=== PATIENT | female | born 1970 | race Caucasian/White ===

== ENCOUNTER 2021-03-15 12:46 | Inpatient (IN) | payer OTHER ==
[~2021-03-15] VITALS: Ht 160 cm; Wt 79.4 kg
[~2021-03-15 12:46] MED LIST: NORCO 5-325 TA1 EACH PO
[2021-03-15 20:25] LABS: HEMOGLOBIN 14.2 gm/dl (12.3-15.3); RED BLOOD COUNT 4.65 M/UL (4.00-5.10); WHITE BLOOD COUNT 3.7 K/UL (4.5-11.0)
[2021-03-15 20:59] LABS: BUN/CREATININE RATIO 13 (0-10)
[2021-03-16 04:23] LABS: HEMOGLOBIN 13.6 gm/dl (12.3-15.3); RED BLOOD COUNT 4.49 M/UL (4.00-5.10)
[2021-03-16 04:29] LABS: WHITE BLOOD COUNT 1.7 K/UL (4.5-11.0)
[2021-03-16 05:02] LABS: BUN/CREATININE RATIO 11 (0-10)
[2021-03-16] MEDS ORDERED: DULOXETINE HCL30 MG PO (11:48)
[2021-03-16] MEDS ORDERED: DULOXETINE HCL60 MG PO (11:49)
[2021-03-16] MEDS ORDERED: CLONIDINE HCL0.3 MG PO (11:51)
[2021-03-16] MEDS ORDERED: DRISDOL1250 MCG PO (11:51)
[2021-03-16] MEDS ORDERED: QUETIAPINE FUM400 MG PO (11:51)
[2021-03-16] MEDS ORDERED: ONDANSETRON HCL4 MG PO (11:52)
[2021-03-16] MEDS ORDERED: FAMOTIDINE20 MG PO (11:52)
[2021-03-16] MEDS ORDERED: BUPRENORPHIN-N1 EACH SL (11:53)
[2021-03-16] MEDS ORDERED: STRATTERA60 MG PO (11:53)
[2021-03-16] MEDS ORDERED: LEVOTHYROXINE25 MCG PO (11:54)
[2021-03-16] MEDS ORDERED: CARVEDILOL12.5 MG PO (11:54)
[2021-03-16] MEDS ORDERED: MOBIC7.5 MG PO (11:55)
[2021-03-16] MEDS ORDERED: FLONASE ALLER15.8 ML (11:55)
[2021-03-16] MEDS ORDERED: LORATADINE10 MG PO (11:55)
[2021-03-17 03:54] LABS: HEMOGLOBIN 14.2 gm/dl (12.3-15.3); RED BLOOD COUNT 4.66 M/UL (4.00-5.10)
[2021-03-17 04:00] LABS: WHITE BLOOD COUNT 7.1 K/UL (4.5-11.0)
[2021-03-17 04:18] LABS: BUN/CREATININE RATIO 16 (0-10)
--- NOTE | 2021-03-17 15:33 | NUR ---
1500: NOTIFIED DR. PARMAR OF HYPOTENSION AND LETHARGY. NEW ORDER NOTED FOR 500 ML NS BOLUS.
--- NOTE | 2021-03-17 17:01 | NUR ---
PATIENT'S BLOOD PRESSURE IMPROVED. 106/76.
[2021-03-18 06:50] LABS: HEMOGLOBIN 13.2 gm/dl (12.3-15.3); RED BLOOD COUNT 4.36 M/UL (4.00-5.10); WHITE BLOOD COUNT 8.7 K/UL (4.5-11.0)
[2021-03-18 07:27] LABS: BUN/CREATININE RATIO 22 (0-10)
[2021-03-18] MEDS ORDERED: ROBAXIN 750 MG750 MG PO (15:10)
[2021-03-19 06:46] LABS: HEMOGLOBIN 13.8 gm/dl (12.3-15.3); RED BLOOD COUNT 4.57 M/UL (4.00-5.10)
[2021-03-19 06:48] LABS: WHITE BLOOD COUNT 4.8 K/UL (4.5-11.0)
[2021-03-19 07:15] LABS: BUN/CREATININE RATIO 21 (0-10)
[2021-03-20 04:21] LABS: HEMOGLOBIN 13.9 gm/dl (12.3-15.3); RED BLOOD COUNT 4.59 M/UL (4.00-5.10); WHITE BLOOD COUNT 5.7 K/UL (4.5-11.0)
[2021-03-20 04:33] LABS: BUN/CREATININE RATIO 21 (0-10)
[2021-03-21 08:26] LABS: HEMOGLOBIN 13.5 gm/dl (12.3-15.3); RED BLOOD COUNT 4.53 M/UL (4.00-5.10)
[2021-03-21] MEDS ORDERED: DECADRON6 MG PO (13:33)
== END 2021-03-21 15:01 | disposition home or self-care (01) | DRG 177 ==
LOC: ER1 12:46 → CDU 21:05 → M/S 03-16 20:02
PROVIDERS: Family Medicine; Internal Medicine; ADMIT Internal Medicine
PROC: 8E0ZXY6 Isolation (ICD-10-PCS; principal; 2021-03-15)
PROC: XW033E5 Introduction of Remdesivir Anti-infective into Peripheral Vein, Percutaneous Approach, New Technology Group 5 (ICD-10-PCS; 2021-03-15)
PROC: 3E0333Z Introduction of Anti-inflammatory into Peripheral Vein, Percutaneous Approach (ICD-10-PCS; 2021-03-15)
DX: U07.1 COVID-19 (principal); J12.82 Pneumonia due to coronavirus disease 2019; J96.01 Acute respiratory failure with hypoxia; J44.0 Chronic obstructive pulmonary disease with (acute) lower respiratory infection; F90.9 Attention-deficit hyperactivity disorder, unspecified type; G89.29 Other chronic pain; E66.9 Obesity, unspecified; I10 Essential (primary) hypertension; F41.9 Anxiety disorder, unspecified; E03.9 Hypothyroidism, unspecified; Z86.711 Personal history of pulmonary embolism; Z82.49 Family history of ischemic heart disease and other diseases of the circulatory system; Z68.31 Body mass index [BMI] 31.0-31.9, adult
CPT/HCPCS: 36415; 36600; 71045; 80048; 80053; 82550; 82553; 82803; 83605; 83615; 83735; 83874; 83880; 84484; 85025; 85610; 86140; 87040; 93005; 94640; 94664; 94760; 96374; 99285; J0171; J1100; J1200; J1630; J1650; J1956; J2060; J2405; J2930; J7030; Q9967; U0002

== ENCOUNTER 2021-06-16 14:36 | Emergency (ER) | payer OTHER ==
[~2021-06-16 14:36] MED LIST changes: +BUPRENORPHIN-N1 EACH SL; +CARVEDILOL12.5 MG PO; +CLONIDINE HCL0.3 MG PO; +DECADRON6 MG PO; +DRISDOL1250 MCG PO; +DULOXETINE HCL30 MG PO; +DULOXETINE HCL60 MG PO; +FAMOTIDINE20 MG PO; +FLONASE ALLER15.8 ML; +LEVOTHYROXINE25 MCG PO; +LORATADINE10 MG PO; +MOBIC7.5 MG PO; +ONDANSETRON HCL4 MG PO; +QUETIAPINE FUM400 MG PO; +ROBAXIN 750 MG750 MG PO; +STRATTERA60 MG PO
[2021-06-16] MEDS ORDERED: CEPHALEXIN500 MG PO (16:13)
[2021-06-16] MEDS ORDERED: BACTROBAN OINT22 GM EXT (16:13)
== END 2021-06-16 16:20 | disposition home or self-care (01) ==
LOC: ER1 14:36
DX: L98.9 Disorder of the skin and subcutaneous tissue, unspecified (principal); I10 Essential (primary) hypertension
CPT/HCPCS: 99283

== ENCOUNTER → 2021-08-03 | Outpatient (CLI) | payer OTHER ==
[~2021-08-03] MED LIST changes: +BACTROBAN OINT22 GM EXT; +CEPHALEXIN500 MG PO
== END ==
LOC: HEART 5 10:49
DX: J44.9 Chronic obstructive pulmonary disease, unspecified (principal); Z28.9 Immunization not carried out for unspecified reason
CPT/HCPCS: 71046; 94010